=== PATIENT | female | born 1995 | race Caucasian/White ===

== ENCOUNTER 2018-08-29 03:27 | Inpatient (IN) | payer OTHER, MEDICAID ==
[2018-08-29 04:25] LABS: ADD UMIC YES; UR ASCORBIC ACID NEGATIVE (NEGATIVE); UR BACTERIA FEW /HPF (NONE SEEN); UR BILIRUBIN (Dip) NEGATIVE (NEGATIVE); UR BLOOD (Dip) 2+ mg/dL (NEGATIVE); UR CLARITY CLEAR (CLEAR); UR COLOR STRAW (YELLOW); UR GLUCOSE (Dip) NEGATIVE (NEGATIVE); UR KETONES (Dip) NEGATIVE (NEGATIVE); UR LEUKOCYTE ESTERASE (Dip) NEGATIVE Leu/ul (NEGATIVE); UR NITRITE (Dip) NEGATIVE (NEGATIVE); UR RBC 0 /HPF (0-5); UR SPECIFIC GRAVITY (Dip) 1.002 (1.003-1.030); UR TOTAL PROTEIN (Dip) NEGATIVE (NEGATIVE); UR UROBILINOGEN (Dip) NEGATIVE (NEGATIVE); UR WBC 0 /HPF (0-5)
[2018-08-29] MEDS ORDERED: OXYTOCIN 30 UNITS/LR 500 ML IV (06:00)
[2018-08-29] MEDS ORDERED: CARBOPROST 250 MCG INJ IM (06:00)
[2018-08-29] MEDS ORDERED: MISOPROSTOL 200 MCG TAB PR (06:00)
[2018-08-29] MEDS ORDERED: LIDOCAINE 1% (MPF) 30 ML INJ INJ (06:00)
[2018-08-29] MEDS: MISOPROSTOL 50 MCG CAPSULE PO ×4 (09:02→22:20)
[2018-08-29] MEDS: LACTATED RINGER'S 1,000 ML IV* ×4 (09:02→20:20)
[2018-08-29 10:29] LABS: ADD MAN DIFF? NO
[2018-08-29 10:32] LABS: BASOPHILS % 0.4 % (0.0-2.0); EOSINOPHILS # 0.2 10^3/ul (0.0-0.5); EOSINOPHILS % 1.7 % (0.0-7.0); HEMATOCRIT 35.7 % (37.0-47.0); HEMOGLOBIN 10.5 g/dl (12.0-16.0); LYMPHOCYTES % 19.9 % (15.0-51.0); MEAN CORPUSCULAR HEMOGLOBIN 22.4 pg (29.0-33.0); MEAN CORPUSCULAR HGB CONC 29.4 g/dl (32.0-37.0); MEAN CORPUSCULAR VOLUME 76.1 fl (82.0-101.0); MEAN PLATELET VOLUME 9.7 fl (7.4-10.4); MONOCYTE # 0.7 10^3/ul (0.3-0.9); MONOCYTES % 6.7 % (0.0-11.0); NEUTROPHILS % 70.5 % (39.0-77.0); PLATELET COUNT 358 10^3/UL (140-415); RED BLOOD COUNT 4.69 10^6/ul (4.20-5.40); RED CELL DISTRIBUTION WIDTH 21.1 % (11.5-14.5)
[2018-08-29 10:51] LABS: INR 0.86; PROTIME 11.8 Sec (11.9-14.9); PT RATIO 0.9
[2018-08-29 10:52] LABS: PARTIAL THROMBOPLASTIN TIME 25.2 Sec (23.0-35.0)
[2018-08-29 11:39] LABS: HEPATITIS B SURFACE ANTIGEN NEGATIVE (NEGATIVE)
[2018-08-29] MEDS: BUTORPHANOL 2 MG INJ IV (16:53)
[2018-08-29 17:40] LABS: RAPID PLASMA REAGIN NONREACTIVE (NR)
[2018-08-29] MEDS ORDERED: FENTAnyl 2MCG/ML-ROPIV 0.2% 100 ML (20:51)
[2018-08-29] MEDS ORDERED: ONDANSETRON 4 MG INJ IV (21:30)
[2018-08-29] MEDS ORDERED: NALOXONE (0.4 MG/ML) INJ IV (21:30)
[2018-08-29] MEDS: FENTAnyl 2MCG/ML-ROPIV 0.2% 100 ML BAG EPI (22:20)
[2018-08-29] MEDS: OXYTOCIN 30 UNITS/LR 500 ML IV (22:56)
[2018-08-30] MEDS: LACTATED RINGER'S 1,000 ML IV* ×3 (02:37→16:16)
[2018-08-30] MEDS: FENTAnyl 2MCG/ML-ROPIV 0.2% 100 ML BAG EPI (04:27)
[2018-08-30] MEDS: DEXTROSE 5%-LR 1,000 ML IV ×2 (06:00→19:56)
[2018-08-30] MEDS: METHYLERGONOVINE 0.2 MG INJ IM (09:57)
[2018-08-30] MEDS: OXYTOCIN 30 UNITS/LR 500 ML IV ×2 (09:59→11:49)
[2018-08-30] MEDS ORDERED: ZOLPIDEM 5 MG TAB PO (12:00)
[2018-08-30] MEDS ORDERED: SENNA/DOCUSATE NA (8.6MG/50MG) TAB PO (12:00)
[2018-08-30] MEDS ORDERED: OXYTOCIN 30 UNITS/LR 500 ML IV (12:00)
[2018-08-30] MEDS ORDERED: CARBOPROST 250 MCG INJ IM (12:00)
[2018-08-30] MEDS ORDERED: METHYLERGONOVINE 0.2 MG INJ IM (12:00)
[2018-08-30] MEDS ORDERED: ONDANSETRON 4 MG INJ IV (12:00)
[2018-08-30] MEDS ORDERED: DIPHENHYDRAMINE 50 MG INJ IV (12:00)
[2018-08-30] MEDS ORDERED: MISOPROSTOL 200 MCG TAB PR (12:00)
[2018-08-30] MEDS: IBUPROFEN 600 MG TAB PO ×3 (13:02→23:55)
[2018-08-30] MEDS: LANOLIN 7 GM TUBE TOP (13:05)
[2018-08-30] MEDS: WITCH HAZEL/GLYCERIN PAD PR (13:05)
[2018-08-30] MEDS: DIBUCAINE 1% 30 GM OINT PR (13:05)
[2018-08-30] MEDS: BENZOCAINE 20% 56 ML SPRAY TOP (13:05)
[2018-08-30] MEDS: HYDROCODONE/APAP (5/325) TAB PO (16:34)
[2018-08-31] MEDS: LACTATED RINGER'S 1,000 ML IV* ×3 (03:56→22:32)
[2018-08-31] MEDS: DEXTROSE 5%-LR 1,000 ML IV ×3 (03:56→22:32)
[2018-08-31] MEDS: IBUPROFEN 600 MG TAB PO ×3 (05:58→17:30)
[2018-08-31 07:39] LABS: ADD MAN DIFF? NO
[2018-08-31 07:44] LABS: BASOPHIL # 0.1 10^3/ul (0.0-0.1); BASOPHILS % 0.3 % (0.0-2.0); EOSINOPHILS # 0.1 10^3/ul (0.0-0.5); EOSINOPHILS % 0.9 % (0.0-7.0); HEMATOCRIT 27.9 % (37.0-47.0); HEMOGLOBIN 8.4 g/dl (12.0-16.0); LYMPHOCYTES % 12.7 % (15.0-51.0); MEAN CORPUSCULAR HEMOGLOBIN 22.6 pg (29.0-33.0); MEAN CORPUSCULAR HGB CONC 30.1 g/dl (32.0-37.0); MEAN PLATELET VOLUME 9.5 fl (7.4-10.4); MONOCYTE # 1.1 10^3/ul (0.3-0.9); NEUTROPHILS % 78.4 % (39.0-77.0); PLATELET COUNT 277 10^3/UL (140-415); RED BLOOD COUNT 3.72 10^6/ul (4.20-5.40); RED CELL DISTRIBUTION WIDTH 20.7 % (11.5-14.5)
[2018-08-31 07:44] LABS: WHITE BLOOD COUNT 15.4 10^3/ul (4.8-10.8)
[2018-08-31] MEDS: WITCH HAZEL/GLYCERIN PAD PR (18:29)
[2018-08-31] MEDS: BENZOCAINE 20% 56 ML SPRAY TOP (18:29)
[2018-09-01] MEDS: IBUPROFEN 600 MG TAB PO ×3 (06:03→11:12)
[2018-09-01 08:29] LABS: ADD MAN DIFF? NO
[2018-09-01 08:34] LABS: WHITE BLOOD COUNT 12.2 10^3/ul (4.8-10.8)
[2018-09-01 08:34] LABS: BASOPHIL # 0.1 10^3/ul (0.0-0.1); BASOPHILS % 0.5 % (0.0-2.0); EOSINOPHILS # 0.1 10^3/ul (0.0-0.5); EOSINOPHILS % 1.1 % (0.0-7.0); HEMATOCRIT 27.8 % (37.0-47.0); HEMOGLOBIN 8.2 g/dl (12.0-16.0); LYMPHOCYTES # 1.8 10^3/ul (0.8-2.9); LYMPHOCYTES % 15.1 % (15.0-51.0); MEAN CORPUSCULAR HEMOGLOBIN 22.3 pg (29.0-33.0); MEAN CORPUSCULAR HGB CONC 29.5 g/dl (32.0-37.0); MEAN CORPUSCULAR VOLUME 75.5 fl (82.0-101.0); MEAN PLATELET VOLUME 9.6 fl (7.4-10.4); MONOCYTE # 0.8 10^3/ul (0.3-0.9); MONOCYTES % 6.1 % (0.0-11.0); NEUTROPHIL # 9.3 10^3/ul (1.6-7.5); NEUTROPHILS % 76.5 % (39.0-77.0); PLATELET COUNT 299 10^3/UL (140-415); RED BLOOD COUNT 3.68 10^6/ul (4.20-5.40); RED CELL DISTRIBUTION WIDTH 20.8 % (11.5-14.5)
[2018-09-01] MEDS: MEASLES,MUMPS,RUBELLA VACCINE INJ SC* (09:00)
[2018-09-01] MEDS: DIPHTH/TET/ACEL PERTUSS (ADULT) 0.5 ML VIAL IM* (14:05)
== END 2018-09-01 17:23 | disposition home or self-care (01) | DRG 807 ==
LOC: OBT 03:27 → PP1 08-30 12:29 → L-D 03:28 → OBT 06:00 → L-D 06:00
PROC: 10E0XZZ Delivery of Products of Conception, External Approach (ICD-10-PCS; principal; 2018-08-30)
PROC: 0W8NXZZ Division of Female Perineum, External Approach (ICD-10-PCS; 2018-08-30)
DX: O69.81X0 Labor and delivery complicated by cord around neck, without compression, not applicable or unspecified (principal); Z37.0 Single live birth; Z3A.39 39 weeks gestation of pregnancy; Z23 Encounter for immunization
CPT/HCPCS: 62319; 76815; 76818; 81001; 85025; 85610; 85730; 86592; 86850; 86900; 86901; 87340; 90686; 90715; 99464